=== PATIENT | female | born 1955 | race Caucasian/White ===

== ENCOUNTER → 2023-05-26 08:04 | Day surgery (SDC) | payer MEDICARE, OTHER, SELFPAY ==
[2023-05-26 09:12] VITALS: BMI 34.6
== END ==
LOC: CATH 08:04
PROVIDERS: ATTENDING PHYSICIAN Internal Medicine Cardiovascular Disease; FAMILY PHYSICIAN Family Medicine
DX: I48.0 Paroxysmal atrial fibrillation (principal); I08.3 Combined rheumatic disorders of mitral, aortic and tricuspid valves; I08.8 Other rheumatic multiple valve diseases; I31.39 Other pericardial effusion (noninflammatory); Z79.01 Long term (current) use of anticoagulants; I10 Essential (primary) hypertension
CPT/HCPCS: 93312; 93320; 93325; 93005

== ENCOUNTER → 2023-08-04 15:53 | Outpatient (REF) | payer MEDICARE, OTHER, SELFPAY | LOC: RAD 15:53 | PROVIDERS: ATTENDING PHYSICIAN Internal Medicine Gastroenterology; FAMILY PHYSICIAN Family Medicine | DX: D12.3 Benign neoplasm of transverse colon (principal); R10.9 Unspecified abdominal pain | CPT/HCPCS: 74177; Q9967 ==

== ENCOUNTER 2024-01-04 10:23 | Emergency (ER) | payer MEDICARE, OTHER, SELFPAY ==
[2024-01-04 10:35] VITALS: BP 127/78
--- NOTE | 2024-01-04 10:43 | ED.GENMED ---
History of Present Illness
<Letitia Gtz PA-C - Last Filed: 01/04/24 18:16>
General
Chief Complaint: Abdominal Symptoms
Source: patient
Exam Limitations: none
Time Seen by Provider: 01/04/24 10:38
Nursing documentation reviewed up to this point in time: agreed with
History of Present Illness
History of Present Illness:
68-year-old female presenting to the emergency department with concerns of painless rectal bleeding. Patient states that yesterday morning she felt the urge to have a bowel movement and noticed bright red blood in the toilet bowl along with small
formed stool. Yesterday throughout the day she was complaining of some upper abdominal discomfort worse after eating. Once again this morning she had an episode of bright red blood in the toilet bowl after a bowel movement. She noted mild
lightheadedness after a bowel meant this morning prompting her visit to the emergency department.
Of note�patient was out to dinner on Thursday night and states that by the end of the meal she was having some crampy lower abdominal pain. Patient denies any fever, chills, nausea, or vomiting. No urinary symptoms. No chest pain or shortness of
breath. Patient states abdominal pain has improved.
Patient is on Eliquis for atrial fibrillation.
Past History
<Letitia Gtz PA-C - Last Filed: 01/04/24 18:16>
Past History
ED Past Medical History: Arrthythmia (Paroxysmal atrial fibrillation), Asthma, HTN and Other (gout)
ED Past Surgical History: Gynecological and Orthopedic
Social History
Tobacco: Non-smoker
Alcohol: None
Drug: None
Personal:
Living: with family
Family History
Family History: Other (A. fib, aortic dissection)
Review of Systems
<Letitia Gtz PA-C - Last Filed: 01/04/24 18:16>
Review of Systems
Allergies reviewed?: Yes
All Other Systems: ROS reviewed and negative except as documented in HPI and ROS
Phy Exam
<Letitia Gtz PA-C - Last Filed: 01/04/24 18:16>
Physical Exam
Physical Exam:
Vitals: Patient's vital signs are stable. Afebrile
General: Patient is well appearing, no acute distress
Skin: Warm and dry, no rashes or lesions
Head: Normocephalic, atraumatic
Eyes: Sclera nonicteric. EOMs intact. No nystagmus.
Throat: Protecting airway
Neck: Normal ROM, no cervical spine tenderness, no meningismus
Cardiac: Regular rate and rhythm, no murmurs.
Pulm: Normal respiratory effort, no wheezes, rales, rhonchi heard on exam.
Abdomen: Abdomen soft. Very mild diffuse abdominal tenderness without rebound tenderness or guarding.
Rectal: Vault empty. No matt blood. No visualized external hemorrhoids or fissures. Hemoccult positive
Extremities: No evidence of cyanosis or edema. Great distal pulses
Neuro: Grossly intact.
Psychiatric: Normal affect.
Course
<Letitia Gtz PA-C - Last Filed: 01/04/24 18:16>
Orders/Labs/Results
Orders:
Orders
01/04/24 11:02
Electrocardiogram (*1) Urgent
Reason for Study: Fatigue / Weakness
EKG- Treatment ONCE
01/04/24 11:04
0.9% Sodium Chloride 1000 ml [Nss] 1,000 ml IV BOLUS
01/04/24 11:14
Complete Blood Count/With Diff Urgent
Comprehensive Metabolic Panel Urgent
Lipase Urgent
Abnormal Lab Results
01/04/24
11:14
MCH 32.8 H pg
(27.0-31.0)
Carbon Dioxide 20 L mmol/L
(22-30)
BUN 28 H mg/dl
(7-17)
Creatinine 1.1 H mg/dL
(0.6-1.0)
Glucose 121 H mg/dl
(70-99)
Calcium 10.8 H mg/dl
(8.4-10.2)
01/04/24 11:14
01/04/24 11:14
Vital Signs
Initial and Last Documented VS:
Initial Vital Signs
Temp Pulse Resp BP Pulse Ox
98.1 F 73 16 127/78 127
01/04/24 10:35 01/04/24 10:35 01/04/24 10:35 01/04/24 10:35 01/04/24 10:35
Last Documented Vital Signs
Temp Pulse Resp BP Pulse Ox
98.1 F 60 17 117/66 94
01/04/24 10:35 01/04/24 12:45 01/04/24 12:45 01/04/24 12:00 01/04/24 11:15
<Juan F Perrin, DO - Last Filed: 01/04/24 12:14>
Orders/Labs/Results
Orders:
Orders
01/04/24 11:02
Electrocardiogram (*1) Urgent
Reason for Study: Fatigue / Weakness
EKG- Treatment ONCE
01/04/24 11:04
0.9% Sodium Chloride 1000 ml [Nss] 1,000 ml IV BOLUS
01/04/24 11:14
Complete Blood Count/With Diff Urgent
Comprehensive Metabolic Panel Urgent
Lipase Urgent
Abnormal Lab Results
01/04/24
11:14
MCH 32.8 H pg
(27.0-31.0)
Carbon Dioxide 20 L mmol/L
(22-30)
BUN 28 H mg/dl
(7-17)
Creatinine 1.1 H mg/dL
(0.6-1.0)
Glucose 121 H mg/dl
(70-99)
Calcium 10.8 H mg/dl
(8.4-10.2)
01/04/24 11:14
01/04/24 11:14
Vital Signs
Initial and Last Documented VS:
Initial Vital Signs
Temp Pulse Resp BP Pulse Ox
98.1 F 73 16 127/78 127
01/04/24 10:35 01/04/24 10:35 01/04/24 10:35 01/04/24 10:35 01/04/24 10:35
Last Documented Vital Signs
Temp Pulse Resp BP Pulse Ox
98.1 F 60 17 117/66 94
01/04/24 10:35 01/04/24 12:45 01/04/24 12:45 01/04/24 12:00 01/04/24 11:15
<Letitia Gtz PA-C - Last Filed: 01/04/24 18:16>
MDM/Problems Addressed
Differential Diagnosis Includes:
Not limited to: Diverticular bleeding, colitis, diverticulitis, internal hemorrhoids/external hemorrhoid,
MDM/Problems Addressed:
68-year-old female with history atrial fibrillation on Eliquis presenting with 2 episodes of minor painless bright red blood per rectum over the past 2 days. No fevers or chills. Did have mild crampy abdominal pain 2 days ago although has since
resolved. No abdominal pain at this time. No urinary symptoms or hematuria. Patient tolerating p.o. intake without vomiting. Patient is hemodynamically stable on arrival. Physical exam as above. Abdomen is soft and nontender. Rectal exam
shows no matt blood or stool in vault. She is Hemoccult positive. No visualized external hemorrhoids, fissures on exam. Heart regular rate and rhythm. Lungs are clear bilaterally. Patient is perfusing well. Patient very well-appearing,
conversational. Will check labs and EKG. Given patient is afebrile with benign abdominal exam�no indication for imaging at this time. Will give IV fluids. Patient seen with attending physician.
Chronic conditions affecting care:
Atrial fibrillation on Eliquis
Acute Exacerbation and/or Progression of Chronic Illness:
N/A
<Letitia Gtz PA-C - Last Filed: 01/04/24 18:16>
*Pulse Oximetry
Patient hypoxic: no
*EKG
Interpreted by ED Provider?: NA
*Correctional Manager Interpretation
Rate: Correctional Manager- N/A
*Critical Care Note
Total Time (30-74mins, 75-104mins- exclusive of procedures): Not Applicable
<Letitia Gtz PA-C - Last Filed: 01/04/24 18:16>
Update Note
Update Note:
Update: Labs reviewed. Hemoglobin stable at 14.3. No leukocytosis. Mild dehydration noted on labs likely secondary to dehydration, BUN stable. Mild hypercalcemia of 10.8 which may be secondary to dehydration. Will replete with IV fluids.
Patient will follow-up with PCP for repeat lab work. Patient has remained hemodynamically stable with no repeat episodes of active rectal bleeding while in emergency department. Given positive Hemoccult�suspect very mild rectal bleeding prior to
arrival. No indication for admission. Will discharge with close GI follow-up. Return precautions discussed at length. Patient comfortable with plan.
ED Attending Note
<Letitia Gtz PA-C - Last Filed: 01/04/24 18:16>
-
Portions of this chart may have been created with voice recognition software.� Occasional wrong word or��sound alike� substitutions may have occurred due to the inherent limitations of voice recognition software.
<Juan F Perrin, - Last Filed: 01/04/24 12:14>
ED Attending Note
Patient seen and examined by attending physician: Yes
I performed a history and physical exam of patient and discussed management with resident, I reviewed resident's note and agree with documented findings and plan of care.: Yes
ED Attending Note:
I have reviewed and agree with history and treatment plan by Letitia Gtz. My exam revealed
Physical Exam
General: no apparent distress, not acutely ill
Neck: supple. no meningeal signs. normal posterior pharynx
Heart: s1/s2 regular rate and rhythm, no murmur. equal radial
pulses.
HEENT: Pupils equal round reactive to light, EOMI
Lungs: no acute respiratory distress. clear bilaterally
Abdomen: normal bowel sounds. not tender. no CVAT
Neuro: alert and oriented. no focal neurological deficits cranial nerves II through XII intact
Skin: no rash
Psychiatric: well kept. interactive and cooperative
Extremities: no edema. no calf tenderness. negative homans. good distal pulses
Patient with minimal bleeding, admission not indicated. Stable for discharge. Follow-up with GI.
Discharge Plan
Departure
Patient Disposition: Home (Routine Discharge)
Date of Disposition: 01/04/24
Time of Disposition: 12:24
Patient with high blood pressure during this ER visit?: No
Condition: Good
Covid-19: Not Applicable
Discharge Problem:
Bright red rectal bleeding
Instructions: Dehydration, Adult (DC), Bloody Stools, Adult ED
Prescriptions:
No Action
fluticasone propionate 1 SPRAY spray,suspension
2 spray intranasal DAILY
cyanocobalamin (vitamin B-12) 1,000 MCG tablet
1,000 mcg PO DAILY
halobetasol propionate 1 APPLIC ointment
1 applic TP QPM
allopurinol 300 MG tablet
300 mg PO DAILY
albuterol sulfate 1 PUFF HFA aerosol inhaler
2 puff inhalation R Q6HPRN PRN (Reason: sob)
amoxicillin 500 MG capsule
2,000 mg PO .PRIOR TO PROCEDURE
diltiazem HCl 120 mg Capsule,Extended Release 12 Hr
180 mg PO BID
lisinopril 40 mg Tablet
40 mg PO DAILY Qty: 1 0RF
Rx Instructions:
HOLD if systolic blood pressure <130 while on Morphine.
Eliquis 5 MG tablet
5 mg PO BID Qty: 1 0RF
Tremfya 100 MG/ML syringe
100 mg SC [id number] Qty: 1 0RF
Rx Instructions:
Discuss with surgeon at follow-up appointment when to resume.
Qvar RediHaler 40 mcg/actuation Hfa Aerosol Breath Activated
1 inh INHALATION BID PRN (Reason: resp. distress)
multivitamin Tablet
1 tab PO QPM
dofetilide 500 mcg Capsule
500 mcg PO Q12 Qty: 60 11RF
spironolactone [Aldactone] 25 mg tablet
25 mg PO DAILY Qty: 30 5RF
prednisone 20 mg Tablet
20 mg PO PRN PRN (Reason: lungs )
Referrals:
Shannon Cabrera MD [Active] - Next open appointment
Augie Quinteros MD [Family Provider] -
Activity Restrictions/Additional Instructions:
RETURN TO THE EMERGENCY DEPARTMENT WITH ANY FEVERS, CHILLS, ABDOMINAL PAIN, PERSISTENT RECTAL BLEEDING, LIGHTHEADEDNESS/DIZZINESS, SHORTNESS OF BREATH, WORSENING IN CURRENT SYMPTOMS, OR ANY OTHER CONCERNS
-It is important to stay well-hydrated. You should continue to take all your medications as prescribed.
-Follow-up with GI for further evaluation/management. You should be receiving a call from your GI doctor to schedule a follow-up appointment.
-Follow-up with PCP for repeat lab work in a month.
Monitor your symptoms closely and return to the emergency department with any acute worsening/new symptom
Interventions
Interventions:
*Risk Screen - Suicide Last Done: 01/04/24 11:01
*General Assessment Last Done: 01/04/24 11:01
*Neglect/Abuse Screening Last Done: 01/04/24 11:01
ED- Fall Risk Assessment Last Done: 01/04/24 11:01
*ED COVID-19 Vaccine History Last Done: 01/04/24 11:01
*Nursing Disposition Last Done: 01/04/24 13:11
VH-Xvkxql-Hxqugwhrod Assessment Last Done: 01/04/24 11:01
Discharge Date and Time
Discharge Date/Time: 01/04/24 13:11
Print Language: [place]
[2024-01-04 11:01] VITALS: BMI 37.0
[2024-01-04 11:05] VITALS: BP 108/63
[2024-01-04] MEDS: NSS 1000 IV (11:13)
[2024-01-04 11:31] LABS: % Basophils 0.8 % (0-2); % Eosinophils 2.6 % (0-6); % Immature Granulocytes 0.4 % (0-0.5); % Lymphocytes 20.9 % (20.5-51.1); % Monocytes 6.1 % (1.7-9.3); % Neutrophils 69.2 % (42.2-75.2); Absolute Basophils 0.1 10^3/uL (0-0.2); Absolute Eosinophils 0.2 10^3/uL (0-0.7); Absolute Lymphocytes 1.5 10^3/uL (1.2-3.4); Absolute Monocytes 0.5 10^3/uL (0.1-0.6); Absolute Neutrophils 5.1 10^3/uL (1.4-6.5); Hematocrit 41.3 % (37.0-47.0); Hemoglobin 14.3 g/dL (12.0-16.0); Mean Corp Hgb Conc. 34.6 g/dL (33.0-37.0); Mean Corpuscular Hgb 32.8 pg (27.0-31.0); Mean Corpuscular Volume 94.7 fL (81.0-99.0); Mean Platelet Volume 9.8 fL (7.4-10.4); Nucleated Red Blood Cells % 0 %; Platelet Count 258 10^3/uL (130-400); Red Blood Cell Count 4.36 10^6/uL (4.20-5.40); Red Cell Dist. Width 13.1 % (11.5-14.5); White Blood Cell Count 7.4 10^3/uL (4.8-10.8)
[2024-01-04 11:44] LABS: ALT (SGPT) 23 U/L (0-35); AST (SGOT) 28 U/L (14-36); Albumin 4.8 g/dl (3.5-5.0); Alkaline Phosphatase 91 U/L (38-126); Blood Urea Nitrogen 28 mg/dl (7-17); Calcium 10.8 mg/dl (8.4-10.2); Carbon Dioxide 20 mmol/L (22-30); Chloride 104 mmol/L (98-107); Estimated Creatinine Clearance 64 ml/min; Glucose 121 mg/dl (70-99); Lipase 68 U/L (23-300); Potassium 4.7 mmol/L (3.5-5.1); Sodium 140 mmol/L (135-145); Total Bilirubin 0.8 mg/dl (0.2-1.3); Total Protein 7.3 g/dl (6.3-8.2); eGFR 54.06
[2024-01-04 12:00] VITALS: BP 117/66
== END 2024-01-04 13:11 | disposition home or self-care (01) ==
LOC: EMR 10:23
PROVIDERS: Physician Assistant; EMERGENCY PHYSICIAN Emergency Medicine; FAMILY PHYSICIAN Family Medicine
DX: K62.5 Hemorrhage of anus and rectum (principal); I48.0 Paroxysmal atrial fibrillation; J45.909 Unspecified asthma, uncomplicated; I10 Essential (primary) hypertension; E86.0 Dehydration; E83.52 Hypercalcemia; Z79.01 Long term (current) use of anticoagulants
CPT/HCPCS: 99283; 96360; 80053; 83690; 85025; 93005

== ENCOUNTER → 2024-03-28 16:26 | Outpatient (REF) | payer MEDICARE, OTHER, SELFPAY | LOC: PAVMRI 16:26 | PROVIDERS: ATTENDING PHYSICIAN Orthopaedic Surgery; FAMILY PHYSICIAN Family Medicine | DX: M25.561 Pain in right knee (principal) | CPT/HCPCS: 73721 ==

== ENCOUNTER → 2024-04-25 11:28 | Outpatient (REF) | payer MEDICARE, OTHER, SELFPAY | LOC: RCS 11:28 | PROVIDERS: ATTENDING PHYSICIAN Orthopaedic Surgery; FAMILY PHYSICIAN Family Medicine | DX: Z01.818 Encounter for other preprocedural examination (principal) | CPT/HCPCS: 93005 ==

== ENCOUNTER → 2024-11-04 10:51 | Outpatient (REF) | payer MEDICARE, OTHER, SELFPAY | LOC: WDC 10:51 | PROVIDERS: ATTENDING PHYSICIAN Obstetrics & Gynecology Gynecology; FAMILY PHYSICIAN Family Medicine | DX: Z12.31 Encounter for screening mammogram for malignant neoplasm of breast (principal) | CPT/HCPCS: 77063; 77067 ==

== ENCOUNTER → 2025-02-04 08:55 | Outpatient (REF) | payer MEDICARE, OTHER, SELFPAY | LOC: PAVMRI 08:55 | PROVIDERS: ATTENDING PHYSICIAN Orthopaedic Surgery; FAMILY PHYSICIAN Family Medicine | DX: M25.561 Pain in right knee (principal); Z98.890 Other specified postprocedural states | CPT/HCPCS: 73721 ==

== ENCOUNTER 2025-03-20 09:37 | Day surgery (SDC) | payer MEDICARE, OTHER, SELFPAY ==
[2025-03-20 10:31] VITALS: BMI 35.9
--- NOTE | 2025-03-20 11:42 | ITS.CL.CARDI ---
[employer] Specialist - Cardioversion
Cardioversion
Procedure Report:
Date of Procedure: March 20 2025
Procedure: Cardioversion
Indication: Symptomatic atrial fibrillation
Performing Physician: Rehan Mckee DO, FACC
Technique: The patient was brought to the holding area. Signed informed consent was obtained. A time out was called and performed. The patient was anesthetized by the anesthesia service. Anticoagulation status was reviewed and appropriate. R2 pads
were placed anteriorly and posteriorly. A 250 J synchronized biphasic shock restored normal sinus rhythm without significant bradycardia. There were no complications.
Conclusion: Uncomplicated cardioversion from atrial fibrillation to sinus rhythm.
Recommendation: Routine post cardioversion care. Continue assisted anticoagulation.
== END 2025-03-20 12:12 | disposition home or self-care (01) ==
LOC: CATH 09:37
PROVIDERS: ATTENDING PHYSICIAN Nuclear Medicine Nuclear Cardiology; FAMILY PHYSICIAN Family Medicine; OTHER PHYSICIAN Internal Medicine Cardiovascular Disease
DX: I48.91 Unspecified atrial fibrillation (principal); Z79.01 Long term (current) use of anticoagulants; I44.0 Atrioventricular block, first degree
CPT/HCPCS: 92960; 93005

== ENCOUNTER 2025-04-12 16:06 | Emergency (ER) | payer SELFPAY ==
[2025-04-12 16:10] VITALS: BP 134/76
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
[2025-04-12 17:58] LABS: Hematocrit 40.3 % (37.0-47.0); Hemoglobin 13.5 g/dL (12.0-16.0); Mean Corp Hgb Conc. 33.5 g/dL (33.0-37.0); Mean Corpuscular Volume 92.0 fL (81.0-99.0); Nucleated Red Blood Cells % 0 %; Platelet Count 274 10^3/uL (130-400); Red Cell Dist. Width 12.8 % (11.5-14.5)
[2025-04-12 18:22] LABS: ALT (SGPT) 23 U/L (0-35); AST (SGOT) 31 U/L (14-36); Albumin 4.9 g/dl (3.5-5.0); Alkaline Phosphatase 92 U/L (38-126); Blood Urea Nitrogen 31 mg/dl (7-17); Calcium 9.5 mg/dl (8.4-10.2); Carbon Dioxide 23 mmol/L (22-30); Chloride 104 mmol/L (98-107); Glucose 95 mg/dl (70-99); Potassium 4.3 mmol/L (3.5-5.1); Sodium 136 mmol/L (135-145); Total Protein 7.9 g/dl (6.3-8.2); eGFR > 60.00
[2025-04-12 18:23] LABS: Troponin I 0.014 ng/ml
[2025-04-12 19:26] VITALS: BMI 35.6
[2025-04-12 19:27] VITALS: BP 141/76
== END 2025-04-12 19:50 | disposition home or self-care (01) ==
LOC: EMR 16:06
PROVIDERS: Physician Assistant; EMERGENCY PHYSICIAN Emergency Medicine; FAMILY PHYSICIAN Family Medicine
DX: S20.211A Contusion of right front wall of thorax, initial encounter (principal); V49.40XA Driver injured in collision with unspecified motor vehicles in traffic accident, initial encounter; Y92.410 Unspecified street and highway as the place of occurrence of the external cause; I48.0 Paroxysmal atrial fibrillation; I10 Essential (primary) hypertension; J45.909 Unspecified asthma, uncomplicated; M10.9 Gout, unspecified; Z79.01 Long term (current) use of anticoagulants; Z82.49 Family history of ischemic heart disease and other diseases of the circulatory system
CPT/HCPCS: 99284; 70450; 71260; 72125; 80053; 84484; 85025; 93005; Q9967